=== PATIENT | male | born 1970 | race Caucasian/White ===

== ENCOUNTER 2018-07-15 16:35 | Emergency (ER) | payer SELFPAY ==
[~2018-07-15] VITALS: Ht 180.3 cm; Wt 100.0 kg
[2018-07-15] MEDS ORDERED: SOD CHLORIDE 0.9% 1,000 ML IV STA (16:51)
[2018-07-15 16:54] VITALS: Ht 180.3 cm; Wt 100.0 kg
--- NOTE | 2018-07-15 16:57 | ERD ---
ER Documentation Chief Complaint Chief Complaint syncope HPI This is a 48-year-old male with no significant past medical history who is presenting after a near syncopal event. The patient reportedly woke up this morning and had felt well. He got ready for the day, but did not eat this morning. He went to [employer] and bought a soda, but he only took a few sips of it before feeling woozy on his way home. He endorses feeling lightheaded and felt his vision going out. The patient did fall to the ground, but he was able to brace himself. He does not know if he hit his head, but the impact was minimal. He denies any headache or vision changes at this time. An ambulance was called. The patient reportedly had low blood pressure. An IV was placed and the patient was started on IV fluids. The patient now reports resolution of symptoms. He has no current complaints. The patient denies feeling sick recently. The patient denies fever or chills. The patient has had no headache or vision changes. The patient does not endorse neck or back pain. The patient denies lightheadedness or dizziness currently. The patient has had no chest pain or trouble breathing. He denies diaphoresis. The patient denies nausea or vomiting. The patient denies abdominal pain. The patient denies changes to bowel movements or urination. The patient has had no focal deficits. The patient has had no weakness or numbness or tingling to the face or extremities. ROS All systems reviewed and are negative except as per history of present illness. Medications Home Meds No Active Prescriptions or Reported Meds Allergies Allergies: Coded Allergies: No Known Allergy (Unverified , 07/15/18) PMhx/Soc Medical and Surgical Hx: pt denies Medical Hx, pt denies Surgical Hx History of Surgery: No Anesthesia Reaction: No Hx Neurological Disorder: No Hx Respiratory Disorders: No Hx Cardiac Disorders: No Hx Psychiatric Problems: No Hx Miscellaneous Medical Probl: No Hx Alcohol Use: No Hx Substance Use: No Hx Tobacco Use: No FmHx Family History: No diabetes Physical Exam Vitals Vital Signs Date Temp Pulse Resp B/P (MAP) Pulse Ox O2 O2 Flow FiO2 Time Delivery Rate 07/15/18 98.2 90 18 127/76 100 16:54 (93) 07/15/18 98.4 85 22 123/77 98 Room Air 16:50 (92) Physical Exam Const: No apparent distress, well-developed, well-nourished Head: Normocephalic, Atraumatic Eyes: Normal Conjunctiva. Extraocular movements intact. Pupils equal, round and reactive to light ENT: Normal External Ears, Nose and Mouth. Neck: Full range of motion. No meningismus. Resp: Clear to auscultation bilaterally, No wheezes, rales or rhonchi Cardio: Regular rate and rhythm. No murmurs, rubs or gallops Abd: Soft, non tender, non distended. Normal bowel sounds Skin: No petechiae or rashes Back: No midline tenderness. No CVA tenderness Ext: No cyanosis, or edema Neur: Awake and alert, oriented 4. Cranial nerves intact. No facial droop. Normal strength, sensation and coordination. Psych: Normal Mood and Affect Result Diagram: 07/15/18 1706 07/15/18 1706 Results 24 hrs Laboratory Tests Test 07/15/18 16:50 07/15/18 17:06 Bedside Glucose 175 mg/dL White Blood Count 6.9 10^3/ul Red Blood Count 3.86 10^6/ul Hemoglobin 11.7 g/dl Hematocrit 33.5 % Mean Corpuscular Volume 86.8 fl Mean Corpuscular Hemoglobin 30.3 pg Mean Corpuscular Hemoglobin Concent 34.9 g/dl Red Cell Distribution Width 12.0 % Platelet Count 194 10^3/UL Mean Platelet Volume 11.3 fl Immature Granulocytes % 0.300 % Neutrophils % 63.8 % Lymphocytes % 26.2 % Monocytes % 8.6 % Eosinophils % 1.0 % Basophils % 0.1 % Nucleated Red Blood Cells % 0.0 /100WBC Immature Granulocytes # 0.020 10^3/ul Neutrophils # 4.4 10^3/ul Lymphocytes # 1.8 10^3/ul Monocytes # 0.6 10^3/ul Eosinophils # 0.1 10^3/ul Basophils # 0.0 10^3/ul Nucleated Red Blood Cells # 0.0 10^3/ul Sodium Level 139 mmol/L Potassium Level 3.3 mmol/L Chloride Level 106 mmol/L Carbon Dioxide Level 27 mmol/L Anion Gap 6 Blood Urea Nitrogen 17 mg/dl Creatinine 0.60 mg/dl Est Glomerular Filtrat Rate mL/min > 60 mL/min Glucose Level 173 mg/dl Calcium Level 10.1 mg/dl Troponin I < 0.012 ng/ml Current Medications Medications Dose Sig/Marysol Start Time Status Last (Trade) Ordered Route PRN Stop Time Admin Dose Reason Admin Sodium 1,000 ml @ Q1H STAT 07/15/18 DC 07/15/18 Chloride 1,000 mls/hr IV 16:51 17:30 07/15/18 17:50 Procedures/MDM MDM The patient's presentation warrants further investigation. Previous medical r ecords, if available, were reviewed. LABS The patient's laboratory testing was obtained and reviewed. No emergent treatment was required unless described below. CBC: No E/o systemic infection or severe anemia or thrombocytopenia. Mild normocytic anemia, not emergent. Chemistry: No E/o severe acidosis or alkalosis or renal failure or diabetic ketoacidosis. Mild hypokalemia, nonemergent. Troponin: No E/o acute ischemia EKG EKG read by me: Rate/Rhythm: Regular rate and rhythm at a rate of 100 bpm Intervals: Normal Hernshaw: Normal Impression: No evidence of acute ischemia or arrhythmia IMAGING Imaging and Radiology interpretation reviewed. CXR FINDINGS: The heart is normal in size. The pulmonary vessels are normal in caliber. The lungs are clear. The costophrenic angles are sharp. The visualized bony thorax is unremarkable. IMPRESSION: No acute cardiopulmonary disease. Electronically viewed and signed by .Lito Lockett MD, on 07/15/2018 17:27 TREATMENT/DISPOSITION The patient presents after a syncopal event. The patient has a reassuring physical exam. The patient is not clinically orthostatic currently, but orthostasis is certainly a possibility as the patient's blood pressure was low at the scene. The patient's blood pressure improved in route to the hospital and has remained stable. A vasovagal event is certainly also a possibility. The patient could have also been hypoglycemic, as he does report skipping breakfast and had not yet eaten today. Currently, the patient is not dizzy. He has no nystagmus. I have decreased suspicion for vertigo. The patient has no signs of emergent or symptomatic anemia. The patient does not have any emergent electrolyte or metabolic emergencies. I have decrease suspicion for a thyroid disorder. The patient is not toxic appearing. I have decreased suspicion for an infectious etiology of symptoms. The patient's EKG and troponin are reassuring. I have low suspicion for acute coronary syndrome. I do not see evidence of any emergent cardiac arrhythmia, which includes but is not limited to heart block, Brugada syndrome or WPW. The patient has no heart murmurs or rales. There is no evidence of cardiomegaly on exam or chest xray. I have low suspicion for hypertrophic cardiomyopathy. I do not see evidence of CHF. The patient does not endorse any chest or pleuritic pain. The history is negative for bleeding or clotting disorders. The patient has not been involved in any recent prolonged trips or surgeries or hospitalizations. The patient has no calf tenderness or swelling. I have decreased suspicion for PE as the etiology of symptoms. The patient has no focal deficits. The neurologic exam is reassuring. I have decreased suspicion for cerebral ischemia. There was no trauma or injury. There is no personal or family history of cerebral aneurysm. I have decreased suspicion for SAH or other ICH. I have low suspicion for temporal arteritis, cavernous venous thrombosis, subdural hematoma, epidural hematoma, meningitis. The Butts Syncope Rule was applied and the patient was found to be low risk for a serious outcome. The patient was treated with normal saline in the emergency department. DISCHARGE Upon reevaluation of the patient, symptoms have improved. No emergent diagnoses were identified. At this time, I feel that the patient stable for discharge. The patient was instructed to follow-up with a primary care physician in 1-3 days. The patient will be given strict precautions with which to return to the emergency department. Prescriptions: None The patient's blood pressure was elevated at greater than 120/80 while in the emergency department. The patient was otherwise stable with no evidence of hypertensive urgency or emergency. The patient does not require admission for blood pressure control. I have discussed with the patient the risks of hypertension. I have instructed the patient to return to the ER for any new or worsening symptoms including chest pain, shortness of breath, headache, blurred vision, confusion, nausea, vomiting or LOC. I have advised the patient to follow up with the primary care physician for outpatient monitoring and treatment for hypertension in 1-3 days. Disclaimer: Inadvertent spelling and grammatical errors are likely due to EHR/dictation software use and do not reflect on the overall quality of patient care. Note that the electronic time recorded on this note does not necessarily reflect the actual time of the patient encounter. Departure Diagnosis: Primary Impression: Syncope Syncope type: unspecified Qualified Codes: R55 - Syncope and collapse Additional Impressions: Normocytic anemia Hypokalemia Condition: Stable Patient Instructions: Anemia, Hypokalemia, Syncope, Unk Cause Additional Instructions: Thank you for for coming to [facility] for your care today. Please ask your nurse or provider if you have questions about your care today and do not leave until all your questions have been answered. Please use any medications given as directed and follow-up with your doctor (or the doctor you were referred to) in the next 1-3 days. If you do not have a primary care doctor you may follow up at the [facility] or [facility] (listed below). You may also use motrin and tylenol as needed for fever and/or pain unless instructed otherwise by your provider or nurse. Indications for more urgent follow-up have been discussed, but you may return to the Emergency Department at ANY time for any worrisome or worsening symptoms. If you have abdominal pain, please know that no test or exam you received is perfect and you should follow up within 8 hours for continued pain. If you had any imaging studies today, such as an X-Ray or CT Scan, these studies will be reviewed later by a radiologist. You will be called if there are important findings that were not identified today, so make sure the contact information you provided at registration is correct. If you received any narcotic pain control medicine today, such as Vicodin, Morphine or Dilaudid, your coordination and judgment may be affected for a number of hours. Please do not drive or operate heavy machinery, and you may want someone to assist you at home. If you were given a prescription for narcotic medication, be aware that it is very addictive- use sparingly and only if necessary. PLEASE SEEK FURTHER EVALUATION AND MANAGEMENT AT YOUR DOCTORS OFFICE WITHIN THE NEXT 1-3 DAYS. IT IS YOUR RESPONSIBILITY TO MAKE AN APPOINTMENT FOR FOLOW-UP CARE. IF YOU HAVE A PRIMARY DOCTOR, PLEASE CALL THEIR OFFICE TO SCHEDULE AN APPOIN TMENT FOR FOLLOW UP. IF YOU DO NOT HAVE A PRIMARY DOCTOR YOU CAN CALL OUR PHYSICIAN REFERRAL HOTLINE AT IF YOU CAN NOT AFFORD TO SEE A PHYSICIAN YOU CAN CHOSE FROM THE FOLLOWING [facility] CLINICS: [facility] [address] [facility] [facility] [address] [facility] [facility] [address] [facility] [address] [facility] [address] [facility]. [facility]. [address] DERIAN ROSENBAUM MD Jul 15, 2018 16:57
[2018-07-15 18:27] VITALS: TEMP 98.7
[2018-07-15 18:57] VITALS: BP 125/76; PULSE 93; RESP 18
== END 2018-07-15 19:10 | disposition home or self-care (01) ==
LOC: E/R 16:35
DX: R55 Syncope and collapse (principal); D64.9 Anemia, unspecified; E87.6 Hypokalemia
CPT/HCPCS: 36415; 71045; 80048; 82962; 84484; 85025; 93005; 99285; J7030